=== PATIENT | female | born 1950 | race Caucasian/White ===

== ENCOUNTER 2017-01-28 10:17 | Day surgery (SDC) | payer MEDICARE, OTHER ==
[~2017-01-28 10:17] MED LIST: RINGERS SOLUTION,LACTATED 1,000 ML IV PRN
--- OUTSIDE RECORDS SUMMARY | 2017-01-28 10:21 | XMS REPORT | Continuity of Care Document ---
:1950 Author Organization [facility] [place] [address] Care Team Providers Name Role Phone Kristi Borjas Primary Care Provider [phone] Source Comments This disclosure is being made pursuant to the ADMETA program and maynot contain all information available regarding this patient.[facility] Active Allergies and Adverse Reactions No Known Allergies Current Medications Be aware that medications may not be up to date as of this document. Alwaysverify current medications with the patient. Prescription Sig. Disp. Refills Start Date End Date Status lisinopril Take 40 mg by Active (PRINIVIL,ZESTRIL) 20 mouth daily. MG tablet furosemide (LASIX) 40 Take 40 mg by Active MG tablet mouth daily. potassium chloride SA Take 20 mEq by Active (K-DUR,KLOR-CON) 20 mouth 2 (two) MEQ tablet times daily. simvastatin (ZOCOR) Take 40 mg by Active 40 MG tablet mouth nightly. meloxicam (MOBIC) 15 Take 15 mg by Active MG tablet mouth daily. traZODone (DESYREL) Take 100 mg by Active 100 MG tablet mouth nightly. aspirin 81 MG EC Take 81 mg by Active tablet mouth daily. tiotropium (SPIRIVA) Place 18 mcg Active 18 MCG inhalation into inhaler capsule and inhale daily. Albuterol (PROVENTIL Inhale into Active IN) the lungs. ketorolac (ACULAR) Place 1 drop 5 mL 1 05/30/2015 12/30/2016 Discontinued 0.5 % ophthalmic into both eyes solution 4 (four) times daily. prednisoLONE acetate Place 1 drop 10 mL 1 05/30/2015 12/30/2016 Discontinued (PRED FORTE) 1 % into both eyes ophthalmic suspension 4 (four) times daily. moxifloxacin Place 1 drop 3 mL 1 05/30/2015 12/30/2016 Discontinued (VIGAMOX) 0.5 % into both eyes ophthalmic solution 4 (four) times daily. Active Problems Not on file Most Recent Encounters Date Type Specialty Providers Description 12/30/2016 Ophth Exam Ophthalmology Trey Acosta MD Corneal endothelial dystrophy (Primary Dx); Pseudophakia - Both Eyes 12/26/2016 Data Import 12/23/2016 Telephone Ophthalmology Preethi Baugh, Other COA 11/11/2016 Clinical Support Radiology Kristi Borjas, REYNOLD Liver mass Denise Connell Tech Social History Tobacco Use Types Packs/Day Years Used Date Former Smoker 0.5 46 Quit: 05/30/2016 Smokeless Tobacco: Never Used Tobacco Cessation:Ready to Quit: Yes Comments: Plan of Care Date Type Specialty Providers Description 03/31/2017 Appointment Ophthalmology Trey Acosta MD [address] [place] [address] [phone] (Fax) Health Maintenance Due Date Last Done Comments Hepatitis C Screening 1970 Pneumococcal Medium Risk 19-64 yo (1 of 1 - PPSV23) 1971 Tetanus/Pertussis (1 - Tdap) 1971 Pap Smear 1973 Colonoscopy 2002 Mammogram 2002 Well Adult Visit 2002 Zoster Vaccine 60+ 2012 Influenza Immunization (Season Ended) 2017 Results from Last 3 Months MRI ABDOMEN W WO CONTRAST (11/11/2016 2:19 PM) [place] [address] DIAGNOSTIC IMAGING Name: Candyrd Sintia Ordering Phys: Krsiti Borjas Age: 66Date of : 1949 Accession Number: [id number] Date of Service:11/11/2016 Gender: F EXAMINATION:Abdominal MRI HISTORY:Abnormal CT scan.Liver mass.Prior cholecystectomy. Cervical cancer. COMPARISON:CT 05/24/16 TECHNIQUE:Multiple MR images of the abdomen obtained before and after the administration of 20mL of Omniscan injected at the right lateral wrist without untoward effect. FINDINGS:No pleural or pericardial effusions are present at the lung bases.The liver is not enlarged.The liver exhibits diffuse loss of signal on kce-ya-sozzg imaging as compared with in phase imaging compatible with fatty infiltration.A lesion is present within the anterior aspect of the left hepatic lobe measuring 3.3 x 2.2cm.Lesion exhibits increased signal on T2-weighted imaging and diminished signal intensity on fat-suppressed precontrast T1-weighted imaging.A thin internal septation is present within this lesion.No internal enhancement is identified within this mass.This is compatible with a benign cyst.No other discrete hepatic lesions are identified.Post cholecystectomy.No biliary duct dilatation.The spleen is not enlarged.The pancreas is moderately atrophic.Focal fatty infiltration within the inferior pancreatic head and uncinate. No main pancreatic duct dilatation.No adrenal mass.A few very small renal cysts are present bilaterally.No hydronephrosis. Abdominal aorta is normal in caliber.Prominent lymph nodes along the brianna hepatis and gastrohepatic ligament are likely reactive.Visualized bowel is nondilated. IMPRESSION: 1.Benign 3.3cm cyst within the anterior aspect of the left hepatic lobe correlates with the area of abnormality on CT 05/24/16.No worrisome hepatic mass. 2.Fatty infiltration of the liver. THIS IS AN ELECTRONICALLY VERIFIED REPORT 11/12/2016 11:56 AM: Darrick Mcmanus M.D. MON Darrick Mcmanus M.D. EH:meme Procedure Note Taran, External Ris In - FriNov 12, 2016 12:00 [place] [address] DIAGNOSTIC IMAGING Name: Patria Sintia Ordering Phys: Kristi Borjas Age: 66 Date of : 1950 Accession Number: [id number] Date of Service:11/11/2016 Gender: F EXAMINATION: Abdominal MRI HISTORY: Abnormal CT scan. Liver mass. Prior cholecystectomy. Cervical cancer. COMPARISON: CT 05/24/16 TECHNIQUE: Multiple MR images of the abdomen obtained before and after the administration of 20mL of Omniscan injected at the right lateral wrist without untoward effect. FINDINGS: No pleural or pericardial effusions are present at the lung bases. The liver is not enlarged. The liver exhibits diffuse loss of signal on led-zv-zejhu imaging as compared with in phase imaging compatible with fatty infiltration. A lesion is present within the anterior aspect of the left hepatic lobe measuring 3.3 x 2.2cm. Lesion exhibits increased signal on T2-weighted imaging and diminished signal intensity on fat-suppressed precontrast T1-weighted imaging. A thin internal septation is present within this lesion. No internal enhancement is identified within this mass. This is compatible with a benign cyst. No other discrete hepatic lesions are identified. Post cholecystectomy. No biliary duct dilatation. The spleen is not enlarged. The pancreas is moderately atrophic. Focal fatty infiltration within the inferior pancreatic head and uncinate. No main pancreatic duct dilatation. No adrenal mass. A few very small renal cysts are present bilaterally. No hydronephrosis. Abdominal aorta is normal in caliber. Prominent lymph nodes along the brianna hepatis and gastrohepatic ligament are likely reactive. Visualized bowel is nondilated. IMPRESSION: 1. Benign 3.3cm cyst within the anterior aspect of the left hepatic lobe correlates with the area of abnormality on CT 05/24/16. No worrisome hepatic mass. 2. Fatty infiltration of the liver. THIS IS AN ELECTRONICALLY VERIFIED REPORT 11/12/2016 11:56 AM: Heather Boland M.D. EH:meme
--- OUTSIDE RECORDS SUMMARY | 2017-01-28 10:22 | XMS REPORT | Continuity of Care Document ---
:1950 Author Organization [facility] ([facility]) Address [address] [place] [address] Phone [phone] Care Team Providers Name Role Phone [facility] Primary Care Provider [phone] Source Comments This disclosure is being made pursuant to the Care Everywhere program, applicable federal and state laws, and may not contain all informaitonavailable regarding this patient.[facility] ([facility]) Active Allergies and Adverse Reactions No Known Allergies Current Medications Prescription Sig. Disp. Refills Start Date End Date Status nicotine 7 mg/24 hr apply 1 Patch on the 14 Patch 0 06/26/2012 Active patch skin daily. Indications: SMOKING CESSATION nicotine 14 mg/24 hr apply 1 Patch on the 14 Patch 0 06/26/2012 Active patch skin daily. Indications: SMOKING CESSATION nicotine 21 mg/24 hr apply 1 Patch on the 14 Patch 0 06/26/2012 Active patch skin daily. Indications: SMOKING CESSATION albuterol 90 Use 2 Puffs by 1 Inhaler 6 07/31/2012 Active mcg/Actuation inhalation every 6 inhaler hours as needed. Indications: CHRONIC OBSTRUCTIVE PULMONARY DISEASE meloxicam 15 mg Take 1 Tab by mouth 60 Tab 11 09/17/2012 Active tablet daily. Indications: OSTEOARTHRITIS lisinopril 40 mg Take 1 Tab by mouth 60 Tab 5 09/17/2012 Active tablet daily. Indications: HYPERTENSION furosemide 40 mg Take 1 Tab by mouth 60 Tab 5 09/17/2012 Active tablet daily. Indications: EDEMA pantoprazole 40 mg Take 1 Tab by mouth 60 Tab 5 09/17/2012 Active EC tablet daily. Indications: GASTROESOPHAGEAL REFLUX potassium chloride Take 1 Tab by mouth 60 Tab 5 09/17/2012 Active 10 mEq XR tablet daily. Indications: HYPOKALEMIA PREVENTION traMADol 50 mg Take 1 Tab by mouth 4 60 Tab 3 09/18/2012 Active tablet times daily as needed. Indications: PAIN cyclobenzaprine 10 Take 1 Tab by mouth 30 Tab 1 09/18/2012 Active mg tablet every 8 hours as needed. Indications: shoulder pain tiotropium (SPIRIVA Use 1 Cap by 90 Cap 3 10/07/2012 Active WITH HANDIHALER) 18 inhalation daily. mcg inhalation Indications: CHRONIC capsule OBSTRUCTIVE PULMONARY DISEASE WITH BRONCHOSPASMS traZODone 100 mg Take 100 mg by mouth Active tablet at bedtime. simvastatin PO Take by mouth. Active Active Problems Problem Noted Date Fuchs' corneal dystrophy 02/04/2014 NS (nuclear sclerosis) 02/04/2014 MGD (meibomian gland dysfunction) 02/04/2014 Dry eye 02/04/2014 PVD (posterior vitreous detachment) 02/04/2014 Right shoulder pain 09/18/2012 Left shoulder pain 06/26/2012 Hypertension 06/26/2012 Tobacco abuse 06/26/2012 Health education/counseling 06/26/2012 Unspecified essential hypertension 03/19/2012 Nicotine abuse 03/19/2012 Ankle swelling 09/03/2010 Osteoarthritis 09/03/2010 Emphysema 09/03/2010 Overview: Diagnosed 2002, not on oxygen. Hypertension 09/03/2010 History of rheumatic fever 09/03/2010 Shortness of breath 09/03/2010 Tobacco user 09/03/2010 Sleep apnea 09/03/2010 Immunizations Name Dates Previously Given Next Due Influenza, unspecified 06/12/2012,06/29/2011 Pneumococcal, unspecified 01/11/2012 Tdap 06/26/2012 Social History Tobacco Use Types Packs/Day Years Used Date Current Every Day Smoker Cigarettes 0.25 39 Smokeless Tobacco: Never Used Tobacco Cessation:Ready to Quit: Yes; Counseling Given: Yes Comments:Trying to quit. Quit [id number]. Alcohol Use Drinks/Week oz/Week Comments Yes occasionally Last Filed Vital Signs Vital Sign Reading Time Taken Blood Pressure 143/83 12/24/2012 2:58 PM CDT Pulse 80 12/24/2012 2:58 PM CDT Temperature 36.2 C (97.2 F) 12/24/2012 2:58 PM CDT Respiratory Rate 20 06/19/2012 2:25 PM CDT Height 1.613 m (5' 3.5") 12/24/2012 2:58 PM CDT Weight 120.566 kg (265 lb 12.8 oz) 12/24/2012 2:58 PM CDT Body Mass Index 46.34 12/24/2012 2:58 PM CDT Oxygen Saturation 96% 06/19/2012 2:25 PM CDT Plan of Care Patient Goal Type Goal Lifestyle Quit smoking / using tobacco Health Maintenance Due Date Last Done Comments HCV Screening 1950 Hepatitis B Vaccine (1 of 3 - Primary 1950 Series) Pneumococcal Vaccine (1 of 1 - PPSV23) 1971 Cervical Cancer Screening 1982 Mammogram 1992 Colonoscopy 2002 FOBT Colon Cancer Screening 2002 Sigmoidoscopy Colon Cancer Screening 2002 Zoster Vaccine 2012 Influenza Vaccine: Seasonal (#1) 04/29/2016 06/12/2012, 06/29/2011 Lipid Disorder Screening 03/19/2017 03/19/2012 Td Vaccine 06/26/2022 06/26/2012 Tdap Vaccine Completed 06/26/2012 Results from Last 3 Months Not on file
[2017-01-28 11:16] LABS: Hematocrit 38.8 % (37.0-47.0); Hemoglobin 12.9 gm/dL (12.5-16.0); Mean Cell Volume 93.9 fl (78-100); Mean Corpuscular Hemoglobin 31.2 pg (27-31); Mean Corpuscular Hgb Conc 33.2 g/dl (32-36); Mean Platelet Volume 9.6 fl (6.0-9.5); Neutrophil # 2.3 K/mm3 (1.3-6.0); Neutrophil % 42.7 % (42-75.0); Platelet Count 261 K/mm3 (150-450); Red Blood Count 4.13 M/mm3 (4.2-5.4); Red Cell Distribution Width 13.6 % (11.5-14.0); White Blood Count 5.3 K/mm3 (4.0-10.5)
[2017-01-28] MEDS ORDERED: RINGERS SOLUTION,LACTATED 1,000 ML IV ONE (12:03)
[2017-01-28] MEDS ORDERED: oxyCODONE HCL/ACETAMINOPHEN 1 TAB TABLET PO PRN (12:46)
[2017-01-28] MEDS ORDERED: IBUPROFEN 600 MG TABLET PO PRN (12:46)
[2017-01-28 15:16] VITALS: BP 150/87
--- NOTE | 2017-01-28 16:38 | OR ---
Operative Report - Dictated Report Narrative: Operative Report 01/28/17 Hysteroscopy Dilatation and Curettage Preoperative Diagnosis: Abnormal Appearance of the Endometrium, Cervical Polyp Postoperative Diagnosis: Abnormal Appearance of the Endometrium, Cervical Polyp Procedure: Hysteroscopy Dilatation and Curettage Surgeon: Ruby Mendez M.D. Anesthesia: Godwin Lemons CRNA Findings: Uterine sound 8 cm. Cervical polyp removed. Fluids: 650 ml EBL: Minimal Drains: None Complications: None Condition: Stable Pathology: Endometrial curettings, endocervical polyp Procedure: The patient was taken to the operating room with IV fluids running. She was placed in the dorsal lithotomy position after anesthesia was induced. A bivalve speculum was placed in the vagina. The anterior lip of the cervix was grasped with a single-tooth tenaculum. Uterine sound met resistance. 2.5 mm hysteroscope was used to navigate through the endocervical canal. Uterine sound was passed into the endometrial cavity with ease. Uterine sound was 8 cm. Endocervical polyp was removed with uterine packing forceps. The cervix was dilated with Geovany dilators. The hysteroscope was introduced into the endometrial cavity. The cavity was distended with normal saline. Ostia were visualized bilaterally. There was no evidence of submucosal fibroid or endometrial polyp. The hysteroscope was removed. The cavity was sharply curetted without difficulty. The hysteroscope was once again introduced into the cavity. The cavity was completely curetted. The hysteroscope was removed. The single-tooth tenaculum was removed. Sites were hemostatic. The speculum was removed from the vagina. Sponge counts were correct 2. The patient tolerated the procedure well.
== END 2017-01-28 10:18 | disposition home or self-care (01) ==
LOC: AMB 10:17
PROVIDERS: ATTEND Obstetrics & Gynecology
PROC: 0UBC8ZZ Excision of Cervix, Via Natural or Artificial Opening Endoscopic (ICD-10-PCS; 2017-01-28)
PROC: 0UDB8ZX Extraction of Endometrium, Via Natural or Artificial Opening Endoscopic, Diagnostic (ICD-10-PCS; principal; 2017-01-28 11:45)
DX: N84.1 Polyp of cervix uteri (principal); N84.0 Polyp of corpus uteri; I10 Essential (primary) hypertension; E78.5 Hyperlipidemia, unspecified; J44.9 Chronic obstructive pulmonary disease, unspecified; Z87.891 Personal history of nicotine dependence; Z68.43 Body mass index [BMI] 50.0-59.9, adult

== ENCOUNTER 2017-04-11 06:29 | Day surgery (SDC) | payer MEDICARE, OTHER ==
[~2017-04-11 06:29] MED LIST changes: +HYDROmorphone HCL 2 MG/ML VIAL IV PRN; +ceFAZolin SODIUM 1 GM VIAL IV PRN; +oxyCODONE HCL/ACETAMINOPHEN 1 TAB TABLET PO PRN
--- OUTSIDE RECORDS SUMMARY | 2017-04-11 06:34 | XMS REPORT | Summary of Care ---
:1950 Author Organization [facility] Address [address] [place] [address] [address] [place] [address] Care Team Providers Name Role Phone Kristi Borjas Primary Care Physician Encounter Date(s): 12/30/16 - 12/30/16 [facility], [address] [place] [id number] Discharge Diagnosis: COPD (chronic obstructive pulmonary disease) Discharge Diagnosis: FRANKI - Obstructive sleep apnea Discharge Diagnosis: Tobacco use Discharge Diagnosis: Morbid obesity Discharge Disposition: Discharged to Home or Self Care Attending Physician: Mauro Deras MD Referring Physician: ANGELA Alvarez Vital Signs No data available for this section Problem List Condition Effective Dates Status Health Status Informant COPD (chronic obstructive pulmonary Active disease)(Confirmed) HLD - Hyperlipidemia(Confirmed) Active HTN (hypertension)(Confirmed) Active FRANKI - Obstructive sleep Active apnea(Confirmed) Allergies, Adverse Reactions, Alerts No Known Medication Allergies Medications albuterol 90 mcg/inh inhalation powder 2 puff(s), Inhale, q4hr interval, PRN wheezing, 0 Refill(s), Start Date: 10:50:00 CDT Start Date: 05/31/15 Status: Orderedaspirin 81 mg, Oral, Daily, # 90 tab(s), 0 Refill(s), Start Date: 05/31/15 10:56:00 CDT Start Date: 05/31/15 Status: OrderedDexilant 30 mg oral delayed release capsule 1 cap(s), Oral, Daily, # 30 cap(s), 0 Refill(s), Start Date: 05/31/15 10:52:00 CDT Start Date: 05/31/15 Status: Orderedfurosemide 40 mg oral tablet 1 tab(s), Oral, Daily, # 30 tab(s), 0 Refill(s), Start Date: 05/31/15 10:51:00 CDT Start Date: 05/31/15 Status: OrderedKlor-Con M10 10 mEq, Oral, Daily, 0 Refill(s), Start Date: 05/31/15 10:51:00 CDT Start Date: 05/31/15 Status: Orderedlisinopril 40 mg oral tablet 1 tab(s), Oral, Daily, # 30 tab(s), 0 Refill(s), Start Date: 05/31/15 10:52:00 CDT Start Date: 05/31/15 Status: Orderedmeloxicam 15 mg oral tablet 1 tab(s), Oral, Daily, 0 Refill(s), Start Date: 05/31/15 10:51:00 CDT Start Date: 05/31/15 Status: Orderednystatin 100,000 units/g topical cream 1 jesus manuel, Topical, BID, # 15 gm, 0 Refill(s), Start Date: 05/31/15 10:52:00 CDT Start Date: 05/31/15 Status: OrderedpredniSONE 20 mg oral tablet tab(s), Oral, Daily, 0 Refill(s), Start Date: 05/31/15 10:50:00 CDT Start Date: 05/31/15 Status: OrderedPromethazine DM 5 mL, Oral, q6hr interval, PRN as needed for cough and congestion, 0 Refill(s), Start Date: 05/31/15 10:50:00 CDT Start Date: 05/31/15 Status: Orderedsimvastatin 20 mg oral tablet 1 tab(s), Oral, HS, # 30 tab(s), 0 Refill(s), Start Date: 05/31/15 10:52:00 CDT Start Date: 05/31/15 Status: OrderedSpiriva 18 mcg, Inhale, Daily, 0 Refill(s), Start Date: 05/31/15 10:53:00 CDT Start Date: 05/31/15 Status: OrderedSymbicort 160 mcg-4.5 mcg/inh inhalation aerosol 2 puff(s), Inhale, BID, 0 Refill(s), Start Date: 05/31/15 10:50:00 CDT Start Date: 05/31/15 Status: OrderedtraZODone 100 mg oral tablet 1 tab(s), Oral, HS, 0 Refill(s), Start Date: 05/31/15 10:51:00 CDT Start Date: 05/31/15 Status: Ordered Results No data available for this section Immunizations No data available for this section Procedures Procedure Date Related Diagnosis Body Site Echocardiogram 05/19/15 Ultrasound scan of carotid 05/19/15 Arthroplasty of hand1 Cholecystectomy Complete repair of rotator cuff 1left hand Social History No data available for this section Assessment and Plan No data available for this section
--- OUTSIDE RECORDS SUMMARY | 2017-04-11 06:34 | XMS REPORT | Summary of Care ---
:1950 Author Organization [facility] Address [facility] [address] [place] [address] Care Team Providers Name Role Phone Kristi Borjas Primary Care Physician Encounter Date(s): 12/11/16 - 12/11/16 [facility] [address] [place] [address]- [facility] Discharge Disposition: Discharged to Home or Self Care Attending Physician: Jamir Mednia MD Vital Signs No data available for this [...] Start Date: 05/31/15 10:50:00 CDT Start Date: 9/2/15 Status: OrderedtraZODone 100 mg oral tablet 1 [...]
--- OUTSIDE RECORDS SUMMARY | 2017-04-11 06:34 | XMS REPORT | Summary of Care ---
:1950 Author Organization [facility] Address [address] [place] [address] [address] [place] [address] Care Team Providers Name Role Phone Kristi Borjas Primary Care Physician Encounter Date(s): 01/13/17 - 01/13/17 [facility] [address] [place] [id number] [facility] Discharge Disposition: 01 Discharged to Home or Self Care Attending Physician: Jamir Medina MD Referring Physician: Jamir Medina MD Vital Signs Most recent to oldest [Reference Range]: 1 Peripheral Pulse Rate [60-100 bpm] 74 bpm (01/13/17 10:25 AM) SpO2 [90-100 %] 93 % (01/13/17 10:25 AM) SpO2 Location Left hand (01/13/17 10:25 AM) Blood Pressure [90-130/60-90 mmHg] 134/67mmHg *HI* (01/13/17 10:25 AM) Mean Arterial Pressure, Cuff 89 mmHg (01/13/17 10:25 AM) Most recent to oldest [Reference Range]: 1 Height/Length Measured 165 cm (01/13/17 10:25 AM) Weight Dosing 142.50 kg1 (01/13/17 10:42 AM) Weight Measured 142.5 kg (01/13/17 10:25 AM) BSA Measured 2.4 m2 (01/13/17 10:25 AM) Body Mass Index Measured 52.34 kg/m2 (01/13/17 10:25 AM) 1Result Comment: This result was because the dosing weight was either not entered or it is>30 days old. This result is based off: Weight Measured January 13, 2017 10:25:00 CDT by Michael Francis CMA Problem List Condition Effective Dates Status Health [...] 05/31/15 10:51:00 CDT Start Date: 05/31/15 Status: Orderedgabapentin 100 mg oral capsule 1 cap(s), Oral, BID, # 120 cap(s), 0 Refill(s), Start Date: 01/13/17 10:27:00 CDT Start Date: 01/13/17 Status: OrderedIncruse Ellipta 62.5 mcg, Inhale, q24hr interval, 0 Refill(s), Start Date: 01/13/17 10:26:00 CDT Start Date: 01/13/17 Status: OrderedKlor-Con M10 10 mEq, Oral, Daily, [...] Date: 05/31/15 10:50:00 CDT Start Date: 05/31/15 Stop Date: 01/13/17 Status: DiscontinuedPromethazine DM 5 mL, Oral, q6hr interval, PRN as needed for cough and congestion, 0 Refill(s), Start Date: 05/31/15 10:50:00 CDT Start Date: 05/31/15 Stop Date: 01/13/17 Status: DiscontinuedrOPINIRole 0.5 mg oral tablet 1 tab(s), Oral, BID, 0 Refill(s), Start Date: 01/13/17 10:27:00 CDT Start Date: 01/13/17 Status: Orderedsimvastatin 20 mg oral tablet 1 tab(s), Oral, HS, # 30 tab(s), 0 Refill(s), Start Date: 05/31/15 10:52:00 CDT Start Date: 05/31/15 Status: OrderedSpiriva 18 mcg, Inhale, Daily, 0 Refill(s), Start Date: 05/31/15 10:53:00 CDT Start Date: 05/31/15 Stop Date: 01/13/17 Status: DiscontinuedSymbicort 160 mcg-4.5 mcg/inh inhalation aerosol 2 puff(s), Inhale, BID, 0 Refill(s), Start Date: 05/31/15 10:50:00 CDT Start Date: 05/31/15 Stop Date: 01/13/17 Status: DiscontinuedtraZODone 100 mg oral tablet 1 tab(s), Oral, [...]
--- OUTSIDE RECORDS SUMMARY | 2017-04-11 06:34 | XMS REPORT | Continuity of Care Document ---
:1950 Author Organization [facility] [place] [address] Care Team Providers Name Role Phone Kristi Borjas Primary Care Provider [phone] Source Comments This disclosure is being made pursuant to the Taketake program and maynot contain all information available regarding this patient.[facility] Active Allergies and Adverse Reactions No Known [...] (two) MEQ tablet times daily. simvastatin (ZOCOR) 40 Take 40 mg by Active MG tablet mouth nightly. meloxicam (MOBIC) 15 Take 15 mg by Active MG tablet mouth daily. aspirin 81 MG EC Take 81 mg by Active tablet mouth daily. Albuterol (PROVENTIL Inhale into Active IN) the lungs. Cyanocobalamin 1000 Inject as Active MCG/ML KIT directed. dexlansoprazole Take 30 mg by Active (DEXILANT) 30 MG mouth daily. capsule gabapentin (NEURONTIN) Take 300 mg by Active 300 MG capsule mouth 3 (three) times daily. umeclidinium bromide Inhale 1 puff Active (INCRUSE ELLIPTA) 62.5 into the lungs MCG/INH inhalation daily. powder nystatin (MYCOSTATIN) Apply Active cream topically 2 (two) times daily. to affected area. Continue until rash has resovled for 2-3 days. ketoconazole (NIZORAL) Apply Active 2 % shampoo topically twice a week. metronidazole Apply Active (METROCREAM) 0.75 % topically 2 cream (two) times daily. traZODone (DESYREL) Take 100 mg by 03/31/2017 Discontinued 100 MG tablet mouth nightly. tiotropium (SPIRIVA) Place 18 mcg 03/31/2017 Discontinued 18 MCG inhalation into inhaler capsule and inhale daily. Active Problems Not on file Most Recent Encounters Date Type Specialty Providers Description 03/31/2017 Ophth Exam Ophthalmology Trey Acosta MD Corneal endothelial dystrophy (Primary Dx); Pseudophakia - Both Eyes Social History Tobacco Use Types Packs/Day Years Used Date Former Smoker 0.5 46 Quit: 05/30/2016 Smokeless Tobacco: Never Used Tobacco Cessation:Ready to Quit: Yes Comments: Plan of Care Date Type Specialty Providers Description 04/22/2017 Appointment Ophthalmology Trey Acosta MD [address] [address] [phone] (Fax) 05/09/2017 Appointment Ophthalmology Trey Acosta MD [address] [address] [phone] (Fax) 05/16/2017 Appointment Ophthalmology Trey Acosta MD [address] [address] [phone] (Fax) 06/06/2017 Appointment Ophthalmology Trey Acosta MD [address] [address] [phone] (Fax) Health Maintenance Due Date Last Done Comments Hepatitis C Screening 1970 Pneumococcal Medium Risk 19-64 yo (1 of 1 - PPSV23) 1971 Tetanus/Pertussis (1 - Tdap) 1971 Pap Smear 1973 Colonoscopy 2002 Mammogram 2002 Well Adult Visit 2002 Zoster Vaccine 60+ 2012 Influenza Immunization (#1) 2017 Results from Last 3 Months Not on file Insurance Payer Benefit Plan / Group Subscriber ID Type Phone Address MEDICARE MEDICARE A AND B [id number] [phone] [address] [place] [address] Home: [address] [place], [place] [phone] ANIYAH LOPEZ [id number]
[2017-04-11] MEDS ORDERED: RINGERS SOLUTION,LACTATED 1,000 ML IV ONE ×2 (07:30→09:40)
--- NOTE | 2017-04-11 10:00 | OR ---
Operative Report - Dictated Report Narrative: Date: 04/11/2017 Surgeon: Jaden Smith M.D. Chief Librarian Extension Department: Kevin Duff PA-C Preoperative diagnosis: Right Thumb carpometacarpal arthrosis Postoperative diagnosis: Right Thumb carpometacarpal arthrosis Operation: Right Thumb resection suspension arthroplasty of the carpo- metacarpal joint Retained implants: 0.45 smooth Karen wire pin cap Anesthesia: General plus regional Tourniquet time: 75 Minutes at 250 mmHg Estimated blood loss: Minimal Drains: None Specimen: Bone for disposal Complications: None Indications: Mrs. España is a 66-year-old female who is seen in the clinic for complaints of right thumb pain. That failed conservative measures including but not limited to injections, medications, splinting, activity modification, and or therapy. Radiographs revealed advanced arthrosis of the thumb carpometacarpal joint and they wish to proceed with surgical treatment. The risks, benefits, and alternatives were discussed in the clinic. The risks of , blood clots, bleeding, infection, damage to nerve, tendon, or blood vessels, stiffness, weakness, persistent pain, deformity, and need for additional procedures were reviewed. She wished to proceed with the procedure. Procedure: After marking the correct extremity in the preoperative holding area, the patient was taken to the operating room and timeout was performed. IV antibiotics consisting of Ancef were administered. A regional followed by general anesthetic was induced by anesthesia. A well-padded tourniquet was applied to the upper arm. The surgical arm was then prepped and draped in a standard sterile fashion. After exsanguinating the extremity, the tourniquet was inflated to 250 mmHg. A longitudinal incision approximately 6 cm in length was made centered over the dorsal aspect of the thumb carpometacarpal joint. This was bluntly dissected down to the subcutaneous tissue protecting the dorsal branch of the radial nerve and any other cutaneous nerves and vessels encountered. A capsulotomy and periosteal elevation was performed between the extensor pollicis brevis and extensor pollicis longus. The base of the thumb metacarpal as well as the trapezium were exposed and the soft tissues and capsule were elevated off this. Utilizing a oscillating saw, approximately 5 mm of the base of the thumb metacarpal was removed including the arthritic joint surface with the marginal osteophytes. The trapezium was then quartered and excised using a combination of ronguer and [place] blade. Care was taken to protect the deep flexor carpi radialis tendon. Once the trapezium was fully excised the flexor carpi radialis tendon was dissected down to its insertion on the index metacarpal and tagged with an umbilical tape. Attention was then turned to the procurement of the flexor carpal radialis tendon over the volar forearm. 2 small transverse incisions were made at the distal and musculotendinous portions of the flexor carpi radialis tendon. Blunt dissection was carried through subcutaneous tissue down to the flexor tendon. The flexor carpal radius tendon was tagged distally and then transected at the muscle tendinous junction proximally and mobilized into the thumb wound. The muscle attached to the tendon was then removed using a scalpel. The tendon was wrapped in a moist Ray-Padma sponge. A bur was utilized in order to make a tunnel through the base of the thumb metacarpal approximately a centimeter distal exiting over the volar and ulnar aspect of the thumb metacarpal in line with the thumb nail. This was enlarged to accommodate the tendon and the bony edges were burred to make this a smooth return of the tendon on itself. The tendon was then passed through the tunnel without any complications. A 0.45 smooth Karen wire was placed through the thumb metacarpal into the index metacarpal using mini C-arm to confirm placement of the thumb in a pinch convertible top installer position suspended at the level of the index metacarpal. 4-0 Ethibond suture was placed deep in the capsule in order to stabilize the tendon graft. 4-0 Ethibond was utilized in order to repair the tendon back to itself as well as to the periosteum as it exited the tunnel. The tendon was then rolled into an anchovy orientation and secured with 4-0 Ethibond suture. 2 Mannie needles were placed in order to pass the previously placed 4-0 Ethibond which was deep in the resected trapezium area and passed through the tendon in order to secure the tendon into the base of the wound. This allowed for filling of the defect from the prior removed trapezium. The wounds were then thoroughly irrigated. Tourniquet was deflated and hemostasis was obtained with bipolar cautery. 4-0 nylon was used to close the tendon procurement site. 4-0 Vicryl was utilized in order to repair the joint capsule and periosteum onto the tendon graft. Subcutaneous 4-0 Vicryl and 4-0 nylon on the skin were utilized in order to close the thumb wound. The K wire was bent and capped outside the skin. Xeroform, 4 x 4's, soft roll, and a well-padded thumb spica splint were applied and the patient was awoken and transferred to postanesthesia care unit in stable condition. All sponge, needle, sharp, and instrument counts were correct prior to closing the wounds.
[2017-04-11] MEDS ORDERED: HYDROmorphone HCL 1 MG/ML DISP.SYRIN IV PRN (10:18)
--- NOTE | 2017-04-11 10:55 | OR ---
Anesthesia Procedure Note - Anesthesia Procedure Note Date of Service: 04/11/17 Narrative: Vital Signs - Last Taken Temp 36.4 C L 04/11/17 10:35 Pulse 69 04/11/17 10:50 Resp 16 04/11/17 10:50 BP 128/74 04/11/17 10:50 Pulse Ox 93 04/11/17 10:50 O2 Oxygen Delivery Method Room Air 04/11/17 10:53 ANESTHESIA PROCEDURE NOTE Date of Procedure: 04/11/2017 Time of procedure: 7:35 AM. Performed by: VAHE Valadez CRNA, MSN Branch Coordinator: Michelle Ngo RN. Preprocedure diagnosis: Basilar thumb surgery pain relief. Post procedure diagnosis: Same. Procedure: Right axillary nerve block. Indications: Post right basilar thumb surgery pain relief. Findings: See below. Details of the procedure: The patient was brought to OR #2 and placed in the supine position. After adequate sedation, the patient was prepped with chlorhexidine and using ultrasound guidance the right axillary artery, radial, ulnar and medial segments of the brachial plexus were identified and lidocaine 1 % was infiltrated to the skin of the intended injection site. Under ultrasound guidance the individual nerve bundles were approached until an arm response was identified on nerve stimulator. Once the stimulator response was effective at less than 0.5 mV and greater than 0.3 mV the femoral nerve was surrounded with 40 mL bupivacaine 0.5% with 1-200,000 epinephrine. An axillary ring was also injected with the same solution. Please see radiology/ultrasound report for details and images of the procedure. EBL: 0 Fluids: N/A. Specimen: N/A. Post procedure condition: The patient tolerated the procedure well. No complications were noted. Thank you for this consultation. Heron Flood CRNA, B[employer] RESEARCH SCIENTIST, MSN
[2017-04-11 13:25] VITALS: BP 124/72
== END 2017-04-11 06:30 | disposition home or self-care (01) ==
LOC: AMB 06:29
PROVIDERS: ATTEND Orthopaedic Surgery
PROC: 3E0T3BZ Introduction of Anesthetic Agent into Peripheral Nerves and Plexi, Percutaneous Approach (ICD-10-PCS; 2017-04-11)
PROC: 0RQS0ZZ Repair Right Carpometacarpal Joint, Open Approach (ICD-10-PCS; principal; 2017-04-11 08:00)
DX: M18.9 Osteoarthritis of first carpometacarpal joint, unspecified (principal); I10 Essential (primary) hypertension; E78.5 Hyperlipidemia, unspecified; J44.9 Chronic obstructive pulmonary disease, unspecified; G47.33 Obstructive sleep apnea (adult) (pediatric); Z87.891 Personal history of nicotine dependence; Z68.43 Body mass index [BMI] 50.0-59.9, adult

== ENCOUNTER 2017-06-05 19:06 | Emergency (ER) | payer MEDICARE, OTHER ==
[2017-06-05 19:16] VITALS: BP 152/72
[2017-06-05] MEDS ORDERED: NORMAL SALINE 1,000 ML IV ONE (19:59)
--- NOTE | 2017-06-05 20:08 | ERNOTE ---
Abdominal HPI - Narrative Date of Service: 06/05/17 - General Chief Complaint: Abdominal Pain Time Seen by Provider: 06/05/17 19:46 Source: patient, family, RN notes reviewed Exam Limitations: no limitations - Immun/Allergies/Home Medications Immunizatons: IMMUNIZATION HX Immunizations Up to Date Yes History of Influenza Vaccine Yes Hx Pneumococcal Vaccination Yes Allergies/Adverse Reactions: Allergies No Known Allergies Allergy (Verified 06/05/17 19:11) Home Medications: HOME MEDICATIONS Albuterol Sulfate [Ventolin HFA] 2 puff IH Q4H PRN 07/23/16 [Last Taken Unknown] Cyanocobalamin (Vitamin B-12) [B-12 Kit] 1,000 mcg IJ Q30D 07/23/16 [Last Taken Unknown] Dexlansoprazole [Dexilant] 30 mg PO DAILY 07/23/16 [Last Taken Unknown] Furosemide [Lasix] 40 mg PO DAILY 07/23/16 [Last Taken Unknown] Lisinopril [Zestril] 40 mg PO DAILY 07/23/16 [Last Taken 04/10/17 22:00] Meloxicam [Mobic] 15 mg PO DAILY 07/23/16 [Last Taken Unknown] Nystatin [Mycostatin Ointment] 1 applic TP BID PRN 07/23/16 [Last Taken Unknown] Potassium Chloride [Klor-Con 10] 10 meq PO DAILY 07/23/16 [Last Taken Unknown] Simvastatin [Zocor] 20 mg PO HS 07/23/16 [Last Taken Unknown] Umeclidinium [place] [Incruse Ellipta] 1 puff IH DAILY 07/23/16 [Last Taken Unknown] Gabapentin [Neurontin] 300 mg PO DAILY 01/24/17 [Last Taken Unknown] Gabapentin [Neurontin] 600 mg PO HS 03/25/17 [Last Taken Unknown] metroNIDAZOLE [Flagyl] 500 mg PO Q8H #30 tablet 06/05/17 [Last Taken Unknown] - History of Present Illness Narrative: 67 year old male brought to the ED by her family for diarrhea that began 2 days ago. She had one episode of vomiting at that time as well but has had none since. She has continued to have numerous diarrhea stools per day, regardless of what she eats or drinks. She has not been taking anything for the diarrhea. She denies abdominal pain. She states she is very thirsty, but reports that she has urinated several times today. She denies any sick contacts. Of note, she had a recent eye surgery which likely involved a preoperative IV antibiotic. She also had a surgery on her hand 3 months ago. Date (Duration): 06/03/17 Time (Timing): 04:00 Prior Abdominal Problems: Present: none. Absent: similar symptoms Prior Treatment: Absent: recently seen, currently on antibiotics Review of Systems - Review of Systems Constitutional: Present: malaise. Absent: fever, chills EYE: Present: no symptoms reported ENT: Present: no symptoms reported Respiratory: Absent: shortness of breath, cough Cardiology: Absent: chest pain, palpitations, syncope Gastrointestinal/Abdominal: Present: diarrhea. Absent: nausea, abdominal pain, other - blood in stools Genitourinary: Absent: dysuria, hematuria, decreased urinary output Musculoskeletal: Present: no symptoms reported Skin: Absent: rash, lesions, change in color Neurological: Absent: headache, dizziness/light-headedness, weakness Endocrine: Present: no symptoms reported Hematologic/Lymphatic: Present: no symptoms reported Psych: Present: no symptoms reported - Patient's Past Medical History Patient History - Medical: Arthritis, Cataracts, GERD, Obesity Patient History - Cardiac/Respiratory: COPD, Hypertension, Hyperlipidemia, Pneumonia, CPAP/BiPAP Home Use, Sleep Apnea Patient History - Cancer: Cervical, Surgical Treatment Patient History - Surgical Procedures: Cholecystectomy, Colonoscopy, D & C, Tubal Ligation, Other Patient History - Other: None LMP (females 10-50): Menopausal - Family History Brother Family History - Medical: No pertinent hx Family History - Cardiac/Respiratory: CVA/Stroke, Myocardial Infarction Family History - Cancer: Other Father Family History - Medical: Alzheimer's Disease, Other Family History - Cardiac/Respiratory: Coronary Heart Disease, Hypertension, Sleep Apnea Family History - Cancer: No pertinent family hx Grandmother-Paternal Family History - Medical: , Diabetes Type 2 Family History - Cardiac/Respiratory: No pertinent hx Family History - Cancer: No pertinent family hx Mother Family History - Medical: No pertinent hx Family History - Cardiac/Respiratory: No pertinent hx Family History - Cancer: No pertinent family hx - Social History Living Situations: home Abuse History: No History of abuse Psych History: No pertinent hx Smoking Status: Former smoker Have you smoked in the past 12 months: No Do you dip or chew tobacco: No Alcohol Use: none Drug Use: none, other - Immunizations Immunizations Up to Date: Yes Hx Pneumococcal Vaccination: Yes History of Influenza Vaccine: Yes Physical Exam - Physical Exam General Appearance: Present: alert, no apparent distress, obese Neck: Present: normal inspection, nontender, supple Respiratory: Present: no respiratory distress, normal breath sounds, no accessory muscle use, lungs clear Cardiovascular/Chest: Present: regular rate, rhythm, no murmur Gastrointestinal/Abdominal: Present: normal bowel sounds, nontender, soft, distended - morbidly obese Back Exam: Present: normal inspection, no CVA tenderness Neurological Exam: Present: alert, oriented, normal mood/affect, no motor/ sensory deficits Skin Exam: Present: normal color, warm/dry ED Progress - Results and Orders Patient's Lab Results:: I have reviewed the patient's lab results. - Vital Signs Patient's Vital Signs:: I have reviewed the patient's vital signs. Vital Signs: Vital Signs 06/05/17 19:12 Temperature 36.3 C L Pulse Rate 92 Respiratory 18 Rate Blood Pressure 152/72 O2 Sat by Pulse 95 Oximetry - X-Ray X-Ray #1 X-Ray: abdomen Interpretation: Reviewed by me X-ray Comments: TECHNIQUE: AP upright and supine views of the abdomen were obtained, total of 6 images. COMPARISONS: None available. FINDINGS: Abdomen Flat W/ Upright *: Overall, the examination is limited by patient's large body habitus. No obvious signs of subdiaphragmatic intraperitoneal free air. There is a suggestion of a loop of small bowel in the left side of the abdomen, with potential dilation measuring 3.2 cm, with possible bowel wall thickening. There is bowel gas within the large bowel without distention or dilation of the large bowel. Upright view demonstrates differential air -fluid levels predominantly in the colonic segments. Patient has sutural calcifications overlying the right upper quadrant likely from previous open cholecystectomy. Osseous structures are intact. Degenerative changes of the lower thoracic spine and lumbar spine noted. IMPRESSION: 1. Abnormal bowel gas pattern, suggestive of possible small bowel dilation in the left side of the abdomen with bowel wall thickening suggested. Differential diagnosis includes early/partial small bowel obstruction, versus potential enteritis versus sentinel bowel loop due to adjacent inflammatory process. Clinical correlation is advised. 2. Air-fluid level within colonic segments could be compatible with diarrhea/colitis. 3. Additional comments and details are as above. Electronically signed by Addie Guo M.D.. Addie Guo MD - Progress/Reassessment Progress:: Unchanged Plan - Plan Plan: Discussed lab/xray results with patient and family. Given her xray findings I recommended a CT of the abdomen for further evaluation. The patient does not wish to do this tonight. She states that she wants to go home and go to bed. She has had several stools while here but is otherwise tolerating liquids orally. She continues to deny abdominal pain. Will start on Flagyl d/t her recent surgery and likely receiving a prophylactic antibiotic, as her diarrhea may be very well due to C.Diff. Agreeable to returning for CT scan if symptoms worsen. AMA obtained for CT. Departure - Departure Clinical Impression: Diarrhea, infectious, adult Disposition: Home Follow Up Needed Condition: Stable Instructions: Clostridium Difficile Infection, [id number], Diarrhea, Adult, [id number] Additional Instructions: Do not take antidiarrhea medications Return to ER if symptoms worsen - pain, vomiting, fever, etc. Start a probiotic (Culturelle) Referrals: Kristi Borjas FNP [Primary Care Provider] - Prescriptions: metroNIDAZOLE [Flagyl] 500 mg PO Q8H #30 tablet
[2017-06-05] MEDS ORDERED: LIDOCAINE/PRILOCAINE 1 APPL KIT TP ONE (20:11)
[2017-06-05 20:39] LABS: Hemoglobin 14.4 gm/dL (12.5-16.0); Mean Cell Volume 91.9 fl (78-100); Mean Corpuscular Hemoglobin 31.5 pg (27-31); Mean Corpuscular Hgb Conc 34.3 g/dl (32-36); Mean Platelet Volume 9.5 fl (6.0-9.5); Neutrophil # 3.4 K/mm3 (1.3-6.0); Neutrophil % 55.5 % (42-75.0); Platelet Count 250 K/mm3 (150-450); Red Blood Count 4.57 M/mm3 (4.2-5.4); Red Cell Distribution Width 13.9 % (11.5-14.0); White Blood Count 6.1 K/mm3 (4.0-10.5)
[2017-06-05 20:53] LABS: Albumin * 3.8 gm/dl (3.4-5.0); Anion Gap 16.4 mmol/L (6.8-13.8); BUN/Creatinine Ratio 17.8 (9.0-21.6); Bilirubin, Total 0.6 mg/dL (0.0-1.1); Ca. Corrected For Albumin 9.2 mg/dL (8.4-10.2); Calcium * 9.4 mg/dL (7.9-10.9); Carbon Dioxide 23.6 mmol/L (24-32.6); Total Protein 8.6 gm/dL (6.2-8.2)
[2017-06-05] MEDS ORDERED: metroNIDAZOLE 500 MG TABLET PO ONE (21:29)
[2017-06-05] MEDS ORDERED: metroNIDAZOLE 500 MG TABLET ONE (21:32)
== END 2017-06-05 21:36 | disposition home or self-care (01) ==
LOC: ER 19:06
DX: A09 Infectious gastroenteritis and colitis, unspecified (principal); Z87.891 Personal history of nicotine dependence; Z53.29 Procedure and treatment not carried out because of patient's decision for other reasons; J44.9 Chronic obstructive pulmonary disease, unspecified; E78.5 Hyperlipidemia, unspecified; I10 Essential (primary) hypertension; Z85.41 Personal history of malignant neoplasm of cervix uteri; K21.9 Gastro-esophageal reflux disease without esophagitis; M19.90 Unspecified osteoarthritis, unspecified site